=== PATIENT | male | born 2000 | race African-American/Black ===

== ENCOUNTER 2024-01-02 13:38 | Outpatient (CLI) | payer OTHER ==
--- NOTE | 2024-01-02 14:40 | Sleep Patient Instructions ---
Sleep Center Visit Summary - Patient Visit Information Reason for Visit: Initial consult for evaluation of sleep disordered breathing and other sleep issues. - Patient Instructions Instructions Attached: Sleep Study Additional Instructions: You will be completing a sleep study, either an in-lab polysomnography (PSG) or home sleep study (HST). You will follow-up in the sleep care office after the sleep study is completed to hear the results and talk about therapy, if needed. You will be called by our office staff to schedule this appointment, but you may contact us with any questions. - Clinic Information Contact: [facility] [address] [place] [address] [email or web address] T: [phone]
--- NOTE | 2024-01-02 14:42 | SLEEP CARE CONSULTATION ---
Information from patient questionnaire entered by Maggy Kumar. I have reviewed and concur with the information entered by Maggy Kumar. This document represents the service I personally performed and the decisions made by me, Cassandra King ARNP. History of Present Illness Service Date and Time: 01/02/2024 1338 Reason for Visit: New patient Chief Complaint: reports: Insomnia, Observed pauses in breathing, Fatigue, Frequent awakenings at night Date of Onset: 4-5YRS Usual bedtime: 6160-5106 Time it takes to fall asleep: 30MINS Snores at night: Yes Observed to quit breathing while asleep: Yes Sleeps alone due to snoring: No Number of times waking at night: 2-3 Reasons for waking at night: reports: Pain, Other (UNKNOWN NOISE) Toss, Turn, or Twitch while sleeping: Yes Recalls having dreams: Yes Usually gets out of bed at: 2842-7535 Feels refreshed in the morning: No Morning headache: No Sleepy or fatigued during the day: Yes Ever fallen asleep while driving: No Takes day naps: Yes Dreams during day naps: Yes Prior sleep studies: No Additional HPI information: I had the pleasure of seeing ILAN CLIFTON today regarding the possibility of him having a sleep disorder. His current complaints are fatigue, frequent night awakenings and observed pauses in breathing. He says it is hard to go to sleep and to stay asleep. If he gets 8 hours or more of sleep, he is still sleepy or fatigued during the day. The patient tells me that he normally goes to bed around 1-2 am, and it takes him approximately 30 minutes to fall asleep. He has been told that he snores loudly and irregularly at night. He has not been observed to stop breathing in his sleep. His bed partner can still sleep in the same bed. He can recall waking up on the average of 2-3 times during the night. Most of the time he wakes up because of noise, pain and unknown reasons. He has occasionally awakened for choking a few times a month. There is a lot of tossing and turning in his sleep. Generally he can recall having dreams. He usually wakes up at 7-9 AM and does not feel refreshed. He usually does not have a morning headache. During the day he complains of feeling sleepy and fatigued. He has never fallen asleep while driving nor has any accident due to sleepiness. He usually can take a nap once a week for about 2-3 hours during the day. If he naps, upon falling asleep during the day he admits to having dreams. There is no somniloquy (sleep talking) or somnambulism (sleep walking). He denies having impaired concentration during the day. 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 Patient is Single and lives in . Have you smoked in the past 12 months: Yes Cigarettes per day (20/pack): 1 (CIGAR ) Years of smokin (6MONTHS) Smoking Pack Years: 0 Alcohol use: Yes Alcohol amount and frequency: 6 X WEEK Caffeine use: Yes Caffeine amount and frequency: 1 DRINK 2 X MONTH Family History Family history of sleep disordered breathing: Yes Family Hx Sleep Apnea: Mother: Snoring, Sleep apnea - Untreated, Sibling: Snoring, Grandparent: Snoring, Sleep apnea - Untreated Allergies and Home Medications Known drug allergies: No Drug allergies reviewed: Yes Home medication list reviewed: Yes (as listed) Allergy and home medication list: Allergies No Known Drug Allergies Allergy (Verified 01/02/24 14:03) Home Medications Acetaminophen [Tylenol] See Rx Instructions .ROUTE .COMPLEX 01/02/24 [History] Portal [Portal Carbonate] See Rx Instructions .ROUTE .COMPLEX 01/02/24 [History] Review of Systems Weight gain over past 5 years: 20 Cardiovascular: denies: high blood pressure Gastrointestinal: denies: heartburn Neurological: denies: headaches Psychiatric: reports: mood disorder Ear/Nose/Throat: reports: wisdom teeth removed. denies: tonsillectomy Musculoskeletal: reports: joint pain Physical Exam Vital signs obtained and entered by: MAGGY Lobo MA Blood Pressure: 147/84 (LEFT ARM) Cuff size: regular Heart Rate: 62 O2 Saturation: 100 Height: 5 ft 10 in Weight: 188 lb Body Mass Index: 26.9 BMI Classification: Overweight Neck circumference: 16 Mouth and throat: narrow oropharynx Soft palate: long Hard palate: normal Uvula: normal Uvula visualization: 0% Mallampati Class IV Tongue: enlarged in size with teeth jhaveri on lateral edges Tonsils: 2+ Neck: normal w/o lymphadenopathy or thyromegaly Heart: regular rate and rhythm Lungs: clear bilaterally Impression and Plan 1. Suspected Obstructive Sleep Apnea-Hypopnea Syndrome, as suggested by a history of loud and irregular snoring, observed cessation of breath while asleep, gasping or choking in sleep, frequent awakening during the night, unrefreshed sleep, and excessive daytime sleepiness. Narrow oropharynx and obesity are common predisposing factors for obstructive sleep apnea-hypopnea syndrome. I recommend proceeding to polysomnography to confirm the diagnosis and to assess severity. If the patient has significant sleep disordered breathing, a manual CPAP titration study will also be performed to find the optimal treatment pressure. I informed the patient of what the sleep studies involve and after some discussion, obtained agreement to proceed. The pathophysiology of obstructive sleep apnea-hypopnea syndrome was discussed with the patient and health risks of cardiovascular and cerebrovascular disease if not treated. 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 Patient agreed to plan. * Schedule polysomnography +- manual CPAP titration study and return in 1-2 weeks after the study to discuss result and initiate therapy. * Avoid long distance driving or driving when feeling sleepy. * Avoid alcohol, sedative and muscle relaxant around bedtime. * Attempt to lose weight. * Review instructions provided by trained office staff on how to prepare for the sleep study. * Return for follow-up after sleep study completed. Counseling Topics: Weight loss health impact Plan: PSG and followup Visit Type: In Office Time Spent with Patient (minutes): 30 Provider Statement: I spent 100% of the Face to Face Visit with the patient with greater than 50% spent counseling the patient and coordination of care.
[2024-01-02 14:44] VITALS: BP 147/84; O2SAT 100
== END 2024-01-02 13:39 | disposition home or self-care (01) ==
LOC: SC 13:38
PROVIDERS: ATTEND Nurse Practitioner Family
DX: R06.83 Snoring (principal); R06.81 Apnea, not elsewhere classified; G47.8 Other sleep disorders; G47.10 Hypersomnia, unspecified
CPT/HCPCS: 99203; 99212